=== PATIENT | female | born 1985 | race Caucasian/White ===

== ENCOUNTER 2020-02-02 19:56 | Emergency (ER) | payer BC ==
[~2020-02-02] VITALS: Ht 160 cm; Wt 113.6 kg
--- NOTE | 2020-02-02 21:04 | PHYS DOC ---
Past Medical History Past Medical History: Diabetes-Type I (SHAISTA PRADO APRN) Past Surgical History: No Surgical History (SHAISTA PRADO APRN) Smoking Status: Never Smoker Alcohol Use: Heavy (SHAISTA PRADO APRN) General Adult EDM: Chief Complaint: ANIMAL BITE HPI: HPI: Patient is a 34 year old female who presents to the ED today with with dog bite to the left calf. Patient works as a [employer] employee, she had gone to somebody's house and a pitbull attacked her. Patient has no information about the dog. (SHAISTA PRADO APRN) Review of Systems: Review of Systems: Constitutional: Denies fever or chills. [] Musculoskeletal: Denies back pain or joint pain. [] Integument: Reports dog bite to the left calf Neurologic: Denies headache, focal weakness or sensory changes. [] Psychiatric: Denies depression or anxiety. [] (SHAISTA PRADO APRN) Heart Score: Risk Factors: Risk Factors: DM, Current or recent (<one month) smoker, HTN, HLP, family history of CAD, obesity. Risk Scores: Score 0 - 3: 2.5% MACE over next 6 weeks - Discharge Home Score 4 - 6: 20.3% MACE over next 6 weeks - Admit for Clinical Observation Score 7 - 10: 72.7% MACE over next 6 weeks - Early Invasive Strategies (SHAISTA PRADO APRN) Physical Exam: PE: Constitutional: Well developed, well nourished, no acute distress, non-toxic appearance. [] Skin: Left proximal calf with a dog bite bruise approximately 5 cm long. Neurovascular exam is intact to the left lower extremity. No bleeding. Back: No tenderness, no CVA tenderness. [] Extremities: No tenderness, no cyanosis, no clubbing, ROM intact, no edema. [] Neurologic: Alert and oriented X 3, normal motor function, normal sensory function, no focal deficits noted. [] Psychologic: Affect normal, judgement normal, mood normal. [] (SHAISTA PRADO APRN) Current Patient Data: Vital Signs: Vital Signs Date Time Temp Pulse Resp B/P (MAP) Pulse Ox O2 Delivery O2 Flow Rate FiO2 02/02/20 20:30 97.3 91 17 136/82 (100) 98 Room Air 97.3 (SHAISTA PRADO APRN) EKG: EKG: [] (SHAISTA PRADO APRN) Radiology/Procedures: Radiology/Procedures: [] (SHAISTA PRADO APRN) Course & Med Decision Making: Course & Med Decision Making Pertinent Labs and Imaging studies reviewed. (See chart for details) This is a 34-year-old female patient presenting to the ED today with dog bite to the left calf. Tetanus was updated. Discharged on Augmentin. Wound care instructions and return precautions provided. (SHAISTA PRADO APRN) Dragon Disclaimer: Dragon Disclaimer: This electronic medical record was generated, in whole or in part, using a voice recognition dictation system. (SHAISTA PRADO APRN) Departure Departure Impression: Primary Impression: Dog bite of lower extremity Disposition: HOME, SELF-CARE Condition: STABLE Patient Instructions: Animal Bite, [id number] Additional Instructions: You have a dog bite to the left calf. Please go home and take a good shower washing the area with soap and water. Keep the area clean and dry. Apply Neosporin to the area twice a day. Monitor the area for any worsening condition and return to the ED. Take the prescribed antibiotics until completed. Scripts Amoxicillin/Potassium Clav (AUGMENTIN 875-125 TABLET) 1 Each Tablet 1 TAB PO BID for 10 Days, #20 TAB 0 Refills Prov: LATASHAMAGDALENASHAISTA SAMSON 02/02/20 Justicifation of Admission Dx: Justifications for Admission: Justification of Admission Dx: N/A (SHAISTA PRADO APRN) Attending Signature Attending Signature I have reviewed the PA/FLATWORK TIER's note and plan of care. I was available for consultation as needed during the patient's visit in the emergency department. I agree with the clinical impression, plan, and disposition. (TITO VELIZ DO) SHAISTA PRADO APRN Feb 02, 2020 21:04 TITO VELIZ DO Feb 03, 2020 01:57
[2020-02-02] MEDS ORDERED: AMOX1TAB61 PO (21:13)
[2020-02-02 21:39] VITALS: BP 146/96
[2020-02-02] MEDS ORDERED: ACETAMINOPHEN 500 MG TABLET PO ONE (21:45)
[2020-02-02] MEDS ORDERED: AMOXICILLIN/K CLAV 875/125MG TABLET. PO ONE (21:45)
[2020-02-02] MEDS ORDERED: DIPH,PERTUSS(ACELL),TET VAC/PF 0.5 ML SYRINGE. VAX IM ONE (21:45)
== END 2020-02-02 21:39 | disposition home or self-care (01) ==
LOC: ER 19:56
DX: S81.852A Open bite, left lower leg, initial encounter (principal); E10.9 Type 1 diabetes mellitus without complications; F10.10 Alcohol abuse, uncomplicated; W54.0XXA Bitten by dog, initial encounter; Y93.89 Activity, other specified; Y92.89 Other specified places as the place of occurrence of the external cause; Y99.8 Other external cause status
CPT/HCPCS: 90471; 90715; 99283